=== PATIENT | male | born 1990 | race Caucasian/White ===

== ENCOUNTER 2020-04-19 21:44 | Emergency (ER) | payer MEDICAID ==
[~2020-04-19] VITALS: Ht 170.2 cm; Wt 70.8 kg
[2020-04-19 21:52] VITALS: Ht 170.2 cm; Wt 70.8 kg
[2020-04-19 22:51] LABS: BASOPHIL % 0.3 % (0-2); PLATELET COUNT 192 x10^3mcL (130-400); RED CELL DISTRIBUTION WIDTH 13.1 % (11.5-14.5)
[2020-04-19 23:04] LABS: CALCIUM 8.8 mg/dL (8.5-10.1); CARBON DIOXIDE 33.7 mmol/L (21-32); CHLORIDE SERUM 100 mmol/L (98-107); CREATININE SERUM 1.2 mg/dL (0.7-1.3); GFR1 > 60 mL/min; GLUCOSE SERUM 141 mg/dL (74-106); POTASSIUM SERUM 3.2 mmol/L (3.5-5.1); SODIUM SERUM 137 mmol/L (136-145)
[2020-04-19 23:09] LABS: ALBUMIN 4.3 g/dL (3.4-5.0); ALKALINE PHOSPHATASE 100 U/L (46-116); ALT/SGPT 51 U/L (16-63); AST/SGOT 25 U/L (15-37); BILIRUBIN TOTAL 0.93 mg/dL (0.20-1.00); LIPASE 83 IU/L (73-393); TOTAL PROTEIN, SERUM 7.4 g/dL (6.4-8.2)
[2020-04-20 03:18] VITALS: BP 146/99
== END 2020-04-20 03:18 | disposition home or self-care (01) ==
LOC: ED 21:44
DX: K29.70 Gastritis, unspecified, without bleeding (principal)
CPT/HCPCS: J2270; J2405; J7030; Q0092